=== PATIENT | female | born 1990 | race Caucasian/White ===

== ENCOUNTER 2022-01-29 11:21 | Day surgery (SDC) | payer MEDICAID, OTHER ==
[2022-01-28 11:39] VITALS: BMI 30.5
[2022-01-29] MEDS ORDERED: Bupivacaine PF 0.5% 30 ML VIAL ONE (13:01)
[2022-01-29] MEDS ORDERED: Neomycin-Polymyxin 1 ML AMP ONE (13:03)
[2022-01-29] MEDS ORDERED: CEFAZOLIN 2 GM VIAL ONE (13:19)
[2022-01-29] MEDS ORDERED: Fentanyl 100 MCG/2 ML VIAL ONE ×3 (13:20→14:59)
[2022-01-29] MEDS ORDERED: PROPOFOL 20 ML ONE (13:20)
[2022-01-29] MEDS ORDERED: Midazolam HCl 2 mg/2 ml Vial ONE (13:20)
[2022-01-29] MEDS ORDERED: Ondansetron PF 4 MG/2 ML Vial ONE (13:37)
[2022-01-29] MEDS ORDERED: Dexamethasone 4 mg/ml Vial ONE (13:37)
== END 2022-01-29 15:45 | disposition home or self-care (01) ==
LOC: CSHSDC 11:21
PROVIDERS: ATTEND Podiatrist Foot & Ankle Surgery
PROC: 0QSN04Z Reposition Right Metatarsal with Internal Fixation Device, Open Approach (ICD-10-PCS; principal; 2022-01-29)
DX: M20.11 Hallux valgus (acquired), right foot (principal); E66.9 Obesity, unspecified; Z68.30 Body mass index [BMI] 30.0-30.9, adult
CPT/HCPCS: C1713; J1100; J2250; J2405; J2704; J3010; S0020

== ENCOUNTER 2022-06-18 10:03 | Day surgery (SDC) | payer OTHER ==
[2022-06-17 13:50] VITALS: BMI 28.1
[2022-06-18] MEDS ORDERED: Neomycin-Polymyxin 1 ML AMP ONE (10:51)
[2022-06-18] MEDS ORDERED: Bupivacaine PF 0.5% 30 ML VIAL ONE (10:51)
[2022-06-18] MEDS ORDERED: Fentanyl 100 MCG/2 ML VIAL ONE ×2 (10:55→13:39)
[2022-06-18] MEDS ORDERED: PROPOFOL 20 ML ONE (10:55)
[2022-06-18] MEDS ORDERED: Midazolam HCl 2 mg/2 ml Vial ONE ×2 (10:55→11:05)
[2022-06-18] MEDS ORDERED: Ondansetron PF 4 MG/2 ML Vial ONE (10:57)
[2022-06-18] MEDS ORDERED: Lidocaine 1% PF 5 ML VIAL ONE (10:57)
[2022-06-18] MEDS ORDERED: CEFAZOLIN 2 GM VIAL ONE (11:03)
[2022-06-18] MEDS ORDERED: Dexamethasone 20 MG/5 ML VIAL ONE (12:19)
[2022-06-18] MEDS ORDERED: HYDROcodone/Acetaminophen 5/325 mg Tablet ONE (14:13)
== END 2022-06-18 15:00 | disposition home or self-care (01) ==
LOC: CSHSDC 10:03
PROVIDERS: ATTEND Podiatrist Foot & Ankle Surgery
PROC: 0SSM0ZZ Reposition Right Metatarsal-Phalangeal Joint, Open Approach (ICD-10-PCS; principal; 2022-06-18)
DX: M20.11 Hallux valgus (acquired), right foot (principal); M21.611 Bunion of right foot; J30.9 Allergic rhinitis, unspecified; F39 Unspecified mood [affective] disorder; F90.9 Attention-deficit hyperactivity disorder, unspecified type; F41.1 Generalized anxiety disorder; Z91.048 Other nonmedicinal substance allergy status; Z79.899 Other long term (current) drug therapy
CPT/HCPCS: C1713; C1776; J1100; J2250; J2405; J2704; J3010; S0020